=== PATIENT | male | born 1935 | race Caucasian/White ===

== ENCOUNTER → 2018-10-26 | Outpatient (REF) | payer MEDICARE, OTHER ==
[2018-10-26 11:20] LABS: HEMATOCRIT 38.4 % (42.0-52.0); MEAN CORPUSCULAR HEMOGLOBIN 28.4 pg (27.0-33.0); MEAN CORPUSCULAR HGB CONC 31.3 g/dl (32.0-36.5); MEAN CORPUSCULAR VOLUME 90.8 fl (80.0-96.0); PLATELET COUNT, AUTOMATED 227 10^3/uL (150-450); RED BLOOD COUNT 4.23 10^6/uL (4.30-6.10); WHITE BLOOD COUNT 5.7 10^3/uL (4.0-10.0)
[2018-10-26 11:22] LABS: APPEARANCE, URINE CLEAR (CLEAR); BACTERIA, URINE AUTO NEGATIVE (NEGATIVE); BILIRUBIN, URINE AUTO NEGATIVE (NEGATIVE); BLOOD, URINE BLOOD NEGATIVE (NEGATIVE); COLOR, URINE YELLOW (YELLOW); GLUCOSE, URINE (UA) AUTO NEGATIVE (NEGATIVE); KETONE, URINE AUTO NEGATIVE (NEGATIVE); LEUKOCYTE ESTERASE, URINE AUTO NEGATIVE (NEGATIVE); NITRITE, URINE AUTO NEGATIVE (NEGATIVE); PROTEIN, URINE AUTO NEGATIVE (NEGATIVE); RBC, URINE AUTO 4 /HPF (0-3); SPECIFIC GRAVITY URINE AUTO 1.011 (1.002-1.035); SQUAMOUS EPITHELIAL CELL UR AU 0 /HPF (0-6); UROBILINOGEN, URINE AUTO 0.2 mg/dL (0.0-2.0); WBC, URINE AUTO 2 /HPF (0-3)
[2018-10-26 11:59] LABS: ALBUMIN 3.6 GM/DL (3.2-5.2); ALT/SGPT 23 U/L (12-78); BILIRUBIN,TOTAL 0.6 MG/DL (0.2-1.0); BLOOD UREA NITROGEN 11 MG/DL (7-18); CALCIUM LEVEL 9.4 MG/DL (8.8-10.2); CARBON DIOXIDE LEVEL 31 MEQ/L (21-32); CHLORIDE LEVEL 108 MEQ/L (98-107); CHOLESTEROL LEVEL 129 MG/DL (<200); CHOLESTEROL RISK RATIO 2.263 (<5); CREATININE FOR GFR 0.92 MG/DL (0.70-1.30); GLOMERULAR FILTRATION RATE > 60.0 (>35); GLUCOSE, FASTING 84 MG/DL (70-100); HDL CHOLESTEROL 57 MG/DL (>40); IRON (FE) 87 UG/DL (65-175); LDL CHOLESTEROL 60 MG/DL (<100); NON-HDL-C 72 MG/DL; PERCENT SATURATION 33.3 % (19.7-50.0); POTASSIUM SERUM 4.4 MEQ/L (3.5-5.1); SODIUM LEVEL 143 MEQ/L (136-145); TOTAL IRON BINDING CAPACITY 261 UG/DL (250-450); TOTAL PROTEIN 6.8 GM/DL (6.4-8.2); TRIGLYCERIDES LEVEL 59 MG/DL (<150)
[2018-10-26 12:00] LABS: CREATININE, URINE 85.2 MG/DL; MALB URINE SIEMENS 9.8 MG/L; MAU/CREAT RATIO 11.5 MCG/MG (0.0-30.0)
== END ==
LOC: M SFHCPLAZ 08:22
PROVIDERS: ATTEND Nurse Practitioner Family
DX: E11.9 Type 2 diabetes mellitus without complications (principal); E78.5 Hyperlipidemia, unspecified; R60.9 Edema, unspecified; I10 Essential (primary) hypertension; D64.9 Anemia, unspecified

== ENCOUNTER → 2019-10-05 | Outpatient (REF) | payer MEDICARE, OTHER ==
[2019-11-03 04:28] LABS: BASO # 0.1 10^3/uL (0.0-0.2); BASO % 1.5 % (0.0-1.0); EOS # 0.5 10^3/uL (0.0-0.5); EOS % 7.4 % (0.0-3.0); HEMOGLOBIN 12.6 g/dl (13.5-17.5); LYMPH # 1.5 10^3/uL (1.5-5.0); LYMPH % 20.6 % (24.0-44.0); MEAN CORPUSCULAR HEMOGLOBIN 29.1 pg (27.0-33.0); MEAN CORPUSCULAR HGB CONC 31.5 g/dl (32.0-36.5); MEAN CORPUSCULAR VOLUME 92.4 fl (80.0-96.0); MONO # 0.7 10^3/uL (0.0-0.8); MONO % 9.8 % (0.0-5.0); NEUTROPHILS # 4.4 10^3/uL (1.5-8.5); NEUTROPHILS % 60.4 % (36.0-66.0); PLATELET COUNT, AUTOMATED 216 10^3/uL (150-450); RED BLOOD COUNT 4.33 10^6/uL (4.30-6.10); WHITE BLOOD COUNT 7.3 10^3/uL (4.0-10.0)
[2019-11-14 22:34] LABS: ALBUMIN 3.6 GM/DL (3.2-5.2); ALT/SGPT 17 U/L (12-78); BILIRUBIN,TOTAL 0.6 MG/DL (0.2-1.0); BLOOD UREA NITROGEN 12 MG/DL (7-18); CALCIUM LEVEL 9.2 MG/DL (8.8-10.2); CARBON DIOXIDE LEVEL 31 MEQ/L (21-32); CHLORIDE LEVEL 105 MEQ/L (98-107); CREATININE FOR GFR 0.93 MG/DL (0.70-1.30); FREE T4 0.98 NG/DL (0.76-1.46); GLOMERULAR FILTRATION RATE > 60.0 (>35); GLUCOSE, FASTING 150 MG/DL (70-100); POTASSIUM SERUM 4.4 MEQ/L (3.5-5.1); SODIUM LEVEL 140 MEQ/L (136-145)
== END ==
LOC: M SFHCPLAZ 14:56
DX: R20.3 Hyperesthesia (principal); R53.83 Other fatigue; K58.2 Mixed irritable bowel syndrome; R19.8 Other specified symptoms and signs involving the digestive system and abdomen

== ENCOUNTER → 2019-10-12 | Outpatient (REF) | payer MEDICARE, OTHER ==
[2019-12-09 23:03] LABS: CA19-9 TUMOR MARKER,CARBOHYDRA 6.9 U/ML (<35.0)
== END ==
LOC: M SFHCPLAZ 09:03
PROVIDERS: ATTEND Internal Medicine
DX: R10.9 Unspecified abdominal pain (principal); R19.8 Other specified symptoms and signs involving the digestive system and abdomen; R53.83 Other fatigue

== ENCOUNTER → 2019-11-01 | Outpatient (CLI) | payer MEDICARE, OTHER ==
[2019-11-01 16:25] LABS: PERCENT SATURATION 34.1 % (19.7-50.0)
== END ==
LOC: M PLALAB 11:50
DX: D64.9 Anemia, unspecified (principal)

== ENCOUNTER → 2020-02-12 | Outpatient (CLI) | payer MEDICARE, OTHER ==
[2020-02-13 12:29] LABS: ALBUMIN % 56.3 % (55.8-66.1); ALPHA-1-GLOBULIN % 4.3 % (2.9-4.9); ALPHA-2-GLOBULINS % 13.6 % (7.1-11.8); BETA-2-GLOBULINS % 4.7 % (3.2-6.5)
[2020-02-13 12:30] LABS: ALBUMIN 3.94 GM/DL (3.29-5.55); ALPHA-2-GLOBULINS 0.95 GM/DL (0.42-0.99); BETA-1-GLOBULINS 0.42 GM/DL (0.28-0.60); BETA-2-GLOBULINS 0.33 GM/DL (0.19-0.55); GAMMA GLOBULIN % 15.1 % (11.1-18.8); GAMMA GLOBULINS 1.06 GM/DL (0.65-1.58)
== END ==
LOC: M PLALAB 14:03
DX: R89.9 Unspecified abnormal finding in specimens from other organs, systems and tissues (principal)

== ENCOUNTER → 2020-03-31 | Outpatient (REF) | payer MEDICARE, OTHER ==
[2020-03-31 14:34] LABS: TOTAL PROTEIN 7.2 GM/DL (6.4-8.2)
[2020-04-02 12:29] LABS: ALBUMIN % 58.3 % (55.8-66.1); ALPHA-1-GLOBULIN % 3.7 % (2.9-4.9); ALPHA-1-GLOBULINS 0.27 GM/DL (0.17-0.41); ALPHA-2-GLOBULINS 0.94 GM/DL (0.42-0.99); BETA-1-GLOBULINS 0.41 GM/DL (0.28-0.60); BETA-1-GLOBULINS % 5.7 % (4.7-7.2); BETA-2-GLOBULINS 0.32 GM/DL (0.19-0.55); BETA-2-GLOBULINS % 4.4 % (3.2-6.5); GAMMA GLOBULIN % 14.9 % (11.1-18.8); GAMMA GLOBULINS 1.07 GM/DL (0.65-1.58)
[2020-04-02 12:53] LABS: IMMUNOTYPING SERUM IGM ABNORMAL (NORMAL); IMMUNOTYPING SERUM KAPPA ABNORMAL (NORMAL)
== END ==
LOC: M SFHCPLAZ 10:48
DX: R77.8 Other specified abnormalities of plasma proteins (principal)

== ENCOUNTER → 2020-05-08 | Outpatient (CLI) | payer MEDICARE, OTHER ==
--- NOTE | 2020-05-08 15:31 | REP ---
INDICATION: EDEMA COMPARISON: 06/10/2014 TECHNIQUE: PA and lateral. FINDINGS: The mediastinum and cardiac silhouette are normal. The lung appiah are clear and without acute consolidation, effusion, or pneumothorax. The skeletal structures are intact and normal. IMPRESSION: No acute cardiopulmonary process. <Electronically signed by Romeo Blair > 05/08/20 [id number]
[2020-05-08 16:37] LABS: BASO # 0.1 10^3/uL (0.0-0.2); BASO % 1.3 % (0.0-1.0); EOS # 0.2 10^3/uL (0.0-0.5); HEMATOCRIT 37.3 % (42.0-52.0); HEMOGLOBIN 11.9 g/dl (13.5-17.5); LYMPH # 1.3 10^3/uL (1.5-5.0); LYMPH % 21.2 % (24.0-44.0); MEAN CORPUSCULAR HGB CONC 31.9 g/dl (32.0-36.5); MEAN CORPUSCULAR VOLUME 90.8 fl (80.0-96.0); MONO # 0.6 10^3/uL (0.0-0.8); MONO % 9.7 % (2.0-8.0); NEUTROPHILS # 4.1 10^3/uL (1.5-8.5); NEUTROPHILS % 64.5 % (36.0-66.0); PLATELET COUNT, AUTOMATED 214 10^3/uL (150-450); RED BLOOD COUNT 4.11 10^6/uL (4.30-6.10); WHITE BLOOD COUNT 6.3 10^3/uL (4.0-10.0)
[2020-05-08 16:39] LABS: ALT/SGPT 16 U/L (12-78); BILIRUBIN,TOTAL 0.4 MG/DL (0.2-1.0); BLOOD UREA NITROGEN 19 MG/DL (7-18); CALCIUM LEVEL 9.3 MG/DL (8.8-10.2); CARBON DIOXIDE LEVEL 29 MEQ/L (21-32); CHLORIDE LEVEL 108 MEQ/L (98-107); CREATININE FOR GFR 1.02 MG/DL (0.70-1.30); GLOMERULAR FILTRATION RATE > 60.0 (>35); GLUCOSE, FASTING 102 MG/DL (70-100); NT-PRO BNP 303 PG/ML (<450); SODIUM LEVEL 142 MEQ/L (136-145); TOTAL PROTEIN 7.1 GM/DL (6.4-8.2)
== END ==
LOC: M WUC 15:04
PROVIDERS: ATTEND Physician Assistant
DX: R60.9 Edema, unspecified (principal)

== ENCOUNTER → 2020-05-26 | Outpatient (REF) | payer MEDICARE, OTHER ==
[2020-05-26 15:59] LABS: CHOLESTEROL RISK RATIO 3.419 (<5)
[2020-05-26 16:11] LABS: MALB URINE SIEMENS 10.3 MG/L; MAU/CREAT RATIO 6.1 MCG/MG (0.0-30.0)
[2020-05-26 16:49] LABS: HEMOGLOBIN A1c 6.5 %
== END ==
LOC: M SFHCPLAZ 13:07
PROVIDERS: ATTEND Family Medicine
DX: E11.9 Type 2 diabetes mellitus without complications (principal)

== ENCOUNTER → 2020-07-29 | Outpatient (CLI) | payer MEDICARE, OTHER ==
[~2020-07-29] MED LIST: D3 +TAB PO; ECOT81TA5 PO; EZET10TA21 PO; FLOM0.4C39 PO; METF10004 PO; MM S100C PO; PEPT262S PO; QC A10TA PO; QC F0.52 PO; SIMV40TA20 PO; TOLT4CAP3 PO; VITA500T16 PO; [UNRECOGNIZED DRUG - CODE] SL
--- NOTE | 2020-07-29 15:16 | ECHO ---
ECHOCARDIOGRAM DATE OF PROCEDURE: 07/29/2020 Age: 84 Gender: Male Height: 69 inches Weight: 200 pounds Body Surface Area: 2.07 m2 PATIENT LOCATION: Outpatient. REFERRING PHYSICIAN: Adria Henriquez DO. INDICATION: Localized edema. MEASUREMENTS: 2D Measurements: RV 4.0 cm LV 4.9 cm Septum 1.2 cm Posterior wall 1.2 cm Aortic Root 3.6 cm LA 4.2 cm LVEF 65% Doppler Measurements: AV 1.87 m/s LVOT - 0.9 m/s MV-E 79, A 91, EA ratio 0.9 Early mitral deceleration time 275 msec E prime medial 6.1, A prime medial 13, E prime lateral 8.2 Average E/E prime ratio 11/PCWP 15.6 mmHg RVSP 37 mmHg IVC could not be well visualized COMMENTS: Normal sinus rhythm without intraventricular conduction disturbance. Technically challenging study in light of the patient's body habitus, but some diagnostically useful information was still obtained. M-mode and 2-dimensional echocardiography was performed with pulse, continuous wave, color flow, and tissue Doppler studies. Borderline concentric left ventricular hypertrophy with normal wall motion. Mildly dilated left atrium with grade 1 LV diastolic dysfunction but current estimated mean left atrial pressure within normal limits. Normal right heart chamber sizes and motion with Doppler evidence of mild pulmonary hypertension. His IVC could not be visualized so an estimated central venous pressure of 10 mmHg was used by convention. Normal aortic dimensions. Mild aortic valvular sclerosis without functional abnormality. Normal appearing mitral valvular apparatus and leaflet excursion with no posterior systolic buckling and only very mild mitral insufficiency. Normal appearing tricuspid valve with very mild insufficiency (physiologic). No apparent intracardiac mass or pericardial effusion. MTDD
== END ==
LOC: M CARPUL 07-11 12:55
PROVIDERS: ATTEND Student in an Organized Health Care Education/Training Program
DX: R60.0 Localized edema (principal)

== ENCOUNTER 2020-11-14 00:14 | Emergency (ER) | payer MEDICARE, OTHER ==
[~2020-11-14] VITALS: Ht 177.8 cm; Wt 77.9 kg
[2020-11-14] MEDS ORDERED: ISOVUE-370 76% 100ML VIAL As Ordered ONE (01:30)
--- NOTE | 2020-11-14 03:36 | REPVR ---
PROCEDURE INFORMATION: Exam: XR Chest Exam date and time: 11/14/2020 1:21 AM Age: 85 years old Clinical indication: Other: Near syncope TECHNIQUE: Imaging protocol: XR of the chest. Views: 2 views. COMPARISON: CR CHEST 2 VIEW 05/08/2020 3:19 PM FINDINGS: LUNGS and PLEURAL SPACE: The left diaphragm is slightly elevated compared to the right, similar to the prior exam. Lung volumes are within normal limits. Calcified granuloma suspected left lower lung field. No evidence of peribronchial thickening. There is no consolidation, pneumothorax, or pleural effusion. No evidence of pulmonary vascular redistribution or overt edema. MEDIASTINUM: There is no mediastinal shift or widening. CARDIAC SILHOUETTE: Cardiothoracic ratio is within normal limits. BONY THORAX: Degenerative changes of the spine and bony thorax noted. IMPRESSION: No acute infiltrate. Other incidental findings discussed above. Electronically signed by: Srinivasa Patel On 11/14/2020 03:36:06 AM
[2020-11-14 03:37] LABS: BASO # 0.1 10^3/uL (0.0-0.2); BASO % 1.4 % (0.0-1.0); EOS # 0.2 10^3/uL (0.0-0.5); EOS % 3.1 % (0.0-3.0); HEMATOCRIT 38.4 % (42.0-52.0); HEMOGLOBIN 12.1 g/dl (13.5-17.5); LYMPH # 1.3 10^3/uL (1.5-5.0); LYMPH % 24.5 % (24.0-44.0); MEAN CORPUSCULAR HEMOGLOBIN 28.9 pg (27.0-33.0); MEAN CORPUSCULAR HGB CONC 31.5 g/dl (32.0-36.5); MEAN CORPUSCULAR VOLUME 91.6 fl (80.0-96.0); MONO # 0.4 10^3/uL (0.0-0.8); MONO % 8.3 % (2.0-8.0); NEUTROPHILS # 3.2 10^3/uL (1.5-8.5); NEUTROPHILS % 62.5 % (36.0-66.0); PLATELET COUNT, AUTOMATED 230 10^3/uL (150-450); RED BLOOD COUNT 4.19 10^6/uL (4.30-6.10); WHITE BLOOD COUNT 5.2 10^3/uL (4.0-10.0)
[2020-11-14 04:08] LABS: ALBUMIN 3.6 GM/DL (3.2-5.2); ALT/SGPT 16 U/L (12-78); BILIRUBIN,DIRECT 0.1 MG/DL (0.0-0.2); BILIRUBIN,TOTAL 0.4 MG/DL (0.2-1.0); BLOOD UREA NITROGEN 16 MG/DL (7-18); CALCIUM LEVEL 9.3 MG/DL (8.8-10.2); CARBON DIOXIDE LEVEL 30 MEQ/L (21-32); CHLORIDE LEVEL 107 MEQ/L (98-107); CK-MB VALUE MASS < 1.0 NG/ML (<3.6); CPK CREATINE PHOSPHOKINASE 48 U/L (39-308); CREATININE FOR GFR 0.83 MG/DL (0.70-1.30); FREE T4 1.04 NG/DL (0.76-1.46); GLOMERULAR FILTRATION RATE > 60.0 (>35); GLUCOSE, FASTING 111 MG/DL (70-100); LIPASE 65 U/L (73-393); MB/CK RELATIVE INDEX 2.08 (< OR =4); POTASSIUM SERUM 3.8 MEQ/L (3.5-5.1); SODIUM LEVEL 141 MEQ/L (136-145); TROPONIN I < 0.02 NG/ML (< 0.10)
[2020-11-14 05:00] VITALS: BP 152/72
--- NOTE | 2020-11-14 05:08 | REPVR ---
PROCEDURE INFORMATION: Exam: CT Abdomen And Pelvis With Contrast Exam date and time: 11/14/2020 1:03 AM Age: 85 years old Clinical indication: Abdominal pain; Localized; Left lower quadrant (llq); Additional info: Llq pain constipation TECHNIQUE: Imaging protocol: Computed tomography of the abdomen and pelvis with contrast. Radiation optimization: All CT scans at this facility use at least one of these dose optimization techniques: automated exposure control; mA and/or kV adjustment per patient size (includes targeted exams where dose is matched to clinical indication); or iterative reconstruction. Contrast material: ISO; Contrast volume: 100 ml; Contrast route: INTRAVENOUS (IV); COMPARISON: None Study limitations: The uppermost aspect of the peritoneal cavity/diaphragm are not included. FINDINGS: LUNG BASES: Mild atelectasis and/or pulmonary parenchymal scarring. VASCULAR: Coronary arterial calcification is noted. No abdominoaortic aneurysm, dissection, or retroperitoneal hematoma. There is aortoiliac, and femoral atherosclerosis. PERITONEAL : The uppermost aspect of the peritoneal cavity is not included. No free intraperitoneal air or fluid is seen otherwise. GI: No hiatal hernia. The stomach is not sufficiently distended to evaluate wall thickening by this exam. No perigastric or periduodenal inflammatory stranding is seen. Non-specific fluid-filled loops of small bowel are seen. No significant asymmetric small-bowel distention to suggest a complete small bowel obstruction. The appendix does not appear inflamed. There is fluid within some portions of the colon. This could be correlated with symptoms and causes of diarrhea. There is diverticulosis but no evidence of acute diverticulitis. HEPATOBILIARY, PANCREAS, SPLEEN: The uppermost right hepatic dome is not included. Visualized hepatic length is 17.4 cm. Attenuation of the liver is consistent with fatty infiltration. There are calcified gallstones. No biliary dilation is seen. There is a hyperdense 11 mm distal pancreatic body nodule anteriorly (image 25, series 201). This is not a simple cyst. The significance of this is uncertain. This may represent a solid pancreatic lesion, a complex cyst or possibly an aneurysm. Nonemergent further evaluation of the pancreas by pancreatic protocol MRI is advised. No pancreatic inflammation. Spleen not enlarged. ADRENALS, KIDNEYS, BLADDER, RETROPERITONEAL: Adrenals within normal limits. There is chronic appearing severe caliectasis with renal parenchymal cortical thinning at the upper pole of the right kidney, likely secondary to a chronic obstruction. There is cystic dilation of the upper pole collecting system to nearly 10 cm in diameter. Right lower pole renal calcifications are seen but no significant hydronephrosis of the lower pole. Consider nonemergent urology consultation. Nonspecific bilateral perinephric stranding is seen. 8 mm left posterior bladder wall diverticulum is noted. Slightly prominent prostate impressing along the base of the urinary bladder. Prostate calcifications are noted. MUSCULOSKELETAL: Degenerative changes of the spine and pelvis are noted. Right inguinal postoperative changes are noted with some surgical clips. There appears to be recurrent fat containing right inguinal hernia. There is a 2.9 cm fluid collection at the opening of the right inguinal canal, likely chronic/postsurgical. IMPRESSION: No focal mesenteric inflammation. Nonspecific gastrointestinal findings to be correlated clinically are discussed above. Indeterminate pancreatic lesion. Nonemergent recommendations discussed above. Cholelithiasis but no other CT evidence for acute cholecystitis. 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 Genitourinary findings discussed above in detail. Other incidental and nonemergent findings discussed above. Electronically signed by: Srinivasa Patel On 11/14/2020 05:08:29 AM
--- NOTE | 2020-11-14 06:43 | ED PDOC ---
Post-Departure Follow-Up dr cyndee nguyen faxed formal report of ct abd/p for fu Shamika Mckeon MD Nov 14, 2020 06:43
--- NOTE | 2020-11-15 05:13 | ECGEPIP ---
[facility] - ED Test Date: 2020-11-14 Pat Name: LASHON WEISS Department: Room: - Gender: Male [employer]ologist: [facility] : 1935 Requested By: BATSHEVA Mitchell Order Number: [id number] Reading MD: Lavell Riddle Measurements Intervals [place] Rate: 71 P: 3 UT: 156 QRS: 18 QRSD: 88 T: -13 QT: 384 QTc: 417 Interpretive Statements Normal sinus rhythm NSTTW ABNORMALITY(S) SIMILAR TO 06/10/14 Electronically Signed on 11-15-2020 5:13:15 EDT by Lavell Riddle
== END 2020-11-14 06:01 | disposition home or self-care (01) ==
LOC: M ED 00:14
DX: K59.00 Constipation, unspecified (principal); R93.3 Abnormal findings on diagnostic imaging of other parts of digestive tract; M51.9 Unspecified thoracic, thoracolumbar and lumbosacral intervertebral disc disorder; K80.20 Calculus of gallbladder without cholecystitis without obstruction; E11.9 Type 2 diabetes mellitus without complications; I10 Essential (primary) hypertension; E78.5 Hyperlipidemia, unspecified; N40.0 Benign prostatic hyperplasia without lower urinary tract symptoms; Z87.891 Personal history of nicotine dependence; Z79.82 Long term (current) use of aspirin; Z79.899 Other long term (current) drug therapy
CPT/HCPCS: 71046; 74177; 80048; 80076; 82550; 82553; 83690; 84439; 84443; 84484; 85025; 93005; 93041; 94760; 99284; Q9967

== ENCOUNTER → 2020-11-20 | Outpatient (CLI) | payer MEDICARE, OTHER ==
[2020-11-20 10:50] LABS: BASO # 0.1 10^3/uL (0.0-0.2); BASO % 1.2 % (0.0-1.0); EOS # 0.1 10^3/uL (0.0-0.5); EOS % 2.1 % (0.0-3.0); HEMATOCRIT 40.4 % (42.0-52.0); HEMOGLOBIN 12.9 g/dl (13.5-17.5); LYMPH # 0.9 10^3/uL (1.5-5.0); LYMPH % 17.4 % (24.0-44.0); MEAN CORPUSCULAR HEMOGLOBIN 28.9 pg (27.0-33.0); MEAN CORPUSCULAR HGB CONC 31.9 g/dl (32.0-36.5); MEAN CORPUSCULAR VOLUME 90.4 fl (80.0-96.0); MONO # 0.4 10^3/uL (0.0-0.8); MONO % 8.3 % (2.0-8.0); NEUTROPHILS # 3.6 10^3/uL (1.5-8.5); NEUTROPHILS % 70.6 % (36.0-66.0); PLATELET COUNT, AUTOMATED 235 10^3/uL (150-450); RED BLOOD COUNT 4.47 10^6/uL (4.30-6.10); WHITE BLOOD COUNT 5.2 10^3/uL (4.0-10.0)
[2020-11-20 11:16] LABS: TOTAL PROTEIN 7.2 GM/DL (6.4-8.2)
[2020-11-21 12:57] LABS: ALBUMIN 4.38 GM/DL (3.29-5.55); ALBUMIN % 60.8 % (55.8-66.1); ALPHA-1-GLOBULIN % 3.4 % (2.9-4.9); ALPHA-1-GLOBULINS 0.24 GM/DL (0.17-0.41); ALPHA-2-GLOBULINS 0.87 GM/DL (0.42-0.99); ALPHA-2-GLOBULINS % 12.1 % (7.1-11.8); BETA-1-GLOBULINS 0.38 GM/DL (0.28-0.60); BETA-1-GLOBULINS % 5.3 % (4.7-7.2); BETA-2-GLOBULINS 0.28 GM/DL (0.19-0.55); BETA-2-GLOBULINS % 3.9 % (3.2-6.5); GAMMA GLOBULIN % 14.5 % (11.1-18.8); GAMMA GLOBULINS 1.04 GM/DL (0.65-1.58)
[2020-11-22 06:08] LABS: FREE KAPPA LIGHT CHAINS SERUM 42.2 mg/L (3.3-19.4); FREE KAPPA LIGHT CHAINS URINE 44.82 mg/L (0.63-113.79); FREE LAMBDA LIGHT CHAINS SERUM 18.5 mg/L (5.7-26.3); FREE LAMBDA LIGHT CHAINS URINE 3.48 mg/L (0.47-11.77); KAPPA/LAMBDA RATIO SERUM 2.28 (0.26-1.65); KAPPA/LAMBDA RATIO URINE 12.88 (1.03-31.76)
== END ==
LOC: M LAB 09:56
PROVIDERS: ATTEND Student in an Organized Health Care Education/Training Program
DX: D47.2 Monoclonal gammopathy (principal)

== ENCOUNTER → 2020-12-10 | Outpatient (CLI) | payer MEDICARE, OTHER ==
[~2020-12-10] MED LIST changes: +PROHANCE 279.3MG/ML 15ML VIAL As Ordered ONE
--- NOTE | 2020-12-11 08:48 | REP ---
INDICATION: PANCREATIC LESION. COMPARISON: 05/16/2013. TECHNIQUE: Multiple sequences obtained in the axial coronal planes prior to and following the intravenous administration of 15 mL ProHance. FINDINGS: Liver is normal in size with no intrinsic lesion. Spleen is normal in size. The adrenal glands are normal. In the body of the pancreas along the anterior margin there is an enhancing nodule which measures 10 x 9 mm. This does appear to have been present in 2013. On the prior study it does not enhance to the extent that it does on the current study and the diameter has increased since that time by about 1 mm in each dimension. There is a cluster of a few nonenhancing subcentimeter cysts at the inferior margin of the pancreatic head. There is no pancreatic duct dilatation. A nonenhancing cystic structure is visualized in the upper pole the right kidney which may represent chronic caliceal dilatation. There is no adenopathy or free fluid in the abdomen. The abdominal aorta is normal in caliber. The gallbladder is mildly distended and contains gallstones, with no gallbladder wall edema. There is no biliary dilatation. IMPRESSION: In the body of the pancreas lung anterior margin there is enhancing nodule measuring 10 x 9 mm. On the prior study it does not enhance to the extent that it does on the current study and the diameter has increased since that time by about 1 mm in each dimension. This may represent an islet cell or samira endocrine tumor. There is a cluster of a few nonenhancing subcentimeter cyst at the inferior margin of the pancreatic head which do not appear suspicious. Recommend follow-up MRI of the pancreas in 1 year. <Electronically signed by Santiago Alfredo > 12/11/20 [id number]
== END ==
LOC: M RAD 16:56
PROVIDERS: ATTEND Student in an Organized Health Care Education/Training Program
DX: K86.2 Cyst of pancreas (principal)
CPT/HCPCS: 74183; A9576

== ENCOUNTER → 2021-01-12 | Outpatient (CLI) | payer MEDICARE, OTHER ==
[~2021-01-12] MED LIST changes: -PROHANCE 279.3MG/ML 15ML VIAL As Ordered ONE
--- NOTE | 2021-01-12 14:32 | REP ---
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 COMPARISON: The accompanying frontal view the chest has been compared to prior chest radiograph 11/15/2019 TECHNIQUE: Five views total FINDINGS: The left 7th rib is fractured posteriorly. Due to the degree of bony demineralization other fractures cannot be ruled out. The accompanying frontal view the chest is unchanged from the prior exam other than the aforementioned fracture. IMPRESSION: Left 7th rib fracture and possible other fractures as described above. <Electronically signed by Jose Dutton > 01/12/21 [id number]
[2021-01-12 17:11] LABS: CREATININE, URINE 66.6 MG/DL; MALB URINE SIEMENS < 5.0 MG/L; MAU/CREAT RATIO 7.5 MCG/MG (0.0-30.0)
[2021-01-12 17:21] LABS: HEMOGLOBIN A1c 6.1 %
[2021-01-12 17:35] LABS: BLOOD UREA NITROGEN 15 MG/DL (7-18); CALCIUM LEVEL 9.6 MG/DL (8.8-10.2); CARBON DIOXIDE LEVEL 30 MEQ/L (21-32); CHLORIDE LEVEL 105 MEQ/L (98-107); CREATININE FOR GFR 0.78 MG/DL (0.70-1.30); GLOMERULAR FILTRATION RATE > 60.0 (>35); GLUCOSE, FASTING 111 MG/DL (70-100); POTASSIUM SERUM 3.9 MEQ/L (3.5-5.1); SODIUM LEVEL 142 MEQ/L (136-145)
== END ==
LOC: M RAD 14:02
PROVIDERS: ATTEND Student in an Organized Health Care Education/Training Program
DX: S22.32XA Fracture of one rib, left side, initial encounter for closed fracture (principal); R07.81 Pleurodynia; E11.9 Type 2 diabetes mellitus without complications; Z12.5 Encounter for screening for malignant neoplasm of prostate
CPT/HCPCS: 36415; 71101; 80048; 82043; 83036; G0103

== ENCOUNTER → 2021-05-01 | Outpatient (CLI) | payer MEDICARE, OTHER | LOC: M PLALAB 12:33 | PROVIDERS: ATTEND Family Medicine | DX: R97.20 Elevated prostate specific antigen [PSA] (principal); Z12.5 Encounter for screening for malignant neoplasm of prostate | CPT/HCPCS: 36415; G0103 ==

== ENCOUNTER → 2021-05-14 | Outpatient (REF) | payer MEDICARE, OTHER ==
[2021-05-14 17:43] LABS: APPEARANCE, URINE CLEAR (CLEAR); BACTERIA, URINE AUTO NEGATIVE (NEGATIVE); BILIRUBIN, URINE AUTO NEGATIVE (NEGATIVE); BLOOD, URINE BLOOD 1+ (NEGATIVE); COLOR, URINE YELLOW (YELLOW); GLUCOSE, URINE (UA) AUTO NEGATIVE (NEGATIVE); KETONE, URINE AUTO NEGATIVE (NEGATIVE); LEUKOCYTE ESTERASE, URINE AUTO NEGATIVE (NEGATIVE); NITRITE, URINE AUTO NEGATIVE (NEGATIVE); PROTEIN, URINE AUTO NEGATIVE (NEGATIVE); RBC, URINE AUTO 1 /HPF (0-3); SPECIFIC GRAVITY URINE AUTO 1.013 (1.002-1.035); SQUAMOUS EPITHELIAL CELL UR AU 0 /HPF (0-6); UROBILINOGEN, URINE AUTO 0.2 mg/dL (0.0-2.0); WBC, URINE AUTO 0 /HPF (0-3)
== END ==
LOC: M SMT 16:53
PROVIDERS: ATTEND Urology
DX: N13.30 Unspecified hydronephrosis (principal); Z79.899 Other long term (current) drug therapy

== ENCOUNTER → 2021-06-01 | Outpatient (CLI) | payer MEDICARE, OTHER ==
[2021-06-01 13:16] LABS: BASO # 0.1 10^3/uL (0.0-0.2); BASO % 1.4 % (0.0-1.0); EOS # 0.2 10^3/uL (0.0-0.5); EOS % 3.6 % (0.0-3.0); HEMOGLOBIN 11.4 g/dl (13.5-17.5); LYMPH # 0.9 10^3/uL (1.5-5.0); LYMPH % 17.9 % (24.0-44.0); MEAN CORPUSCULAR HGB CONC 31.7 g/dl (32.0-36.5); MEAN CORPUSCULAR VOLUME 91.6 fl (80.0-96.0); MONO # 0.4 10^3/uL (0.0-0.8); MONO % 8.6 % (2.0-8.0); NEUTROPHILS # 3.4 10^3/uL (1.5-8.5); NEUTROPHILS % 68.1 % (36.0-66.0); PLATELET COUNT, AUTOMATED 191 10^3/uL (150-450); RED BLOOD COUNT 3.93 10^6/uL (4.30-6.10)
[2021-06-01 14:22] LABS: BLOOD UREA NITROGEN 17 MG/DL (7-18); CALCIUM LEVEL 8.9 MG/DL (8.8-10.2); CARBON DIOXIDE LEVEL 30 MEQ/L (21-32); CHLORIDE LEVEL 107 MEQ/L (98-107); CREATININE FOR GFR 0.89 MG/DL (0.70-1.30); GLOMERULAR FILTRATION RATE > 60.0 (>35); GLUCOSE, FASTING 147 MG/DL (70-100); POTASSIUM SERUM 3.9 MEQ/L (3.5-5.1); SODIUM LEVEL 141 MEQ/L (136-145); TOTAL PROTEIN 6.4 GM/DL (6.4-8.2)
== END ==
LOC: M PLALAB 11:53
PROVIDERS: ATTEND Student in an Organized Health Care Education/Training Program
DX: D47.2 Monoclonal gammopathy (principal); E11.9 Type 2 diabetes mellitus without complications

== ENCOUNTER → 2021-06-02 | Outpatient (CLI) | payer MEDICARE, OTHER ==
[~2021-06-02] MED LIST changes: +ISOVUE-370 76% 100ML VIAL As Ordered ONE
== END ==
LOC: M RAD 07:18
PROVIDERS: ATTEND Student in an Organized Health Care Education/Training Program
DX: L98.9 Disorder of the skin and subcutaneous tissue, unspecified (principal); K02.9 Dental caries, unspecified; K03.81 Cracked tooth
CPT/HCPCS: 70487; Q9967

== ENCOUNTER → 2021-07-02 | Outpatient (REF) | payer MEDICARE, OTHER ==
[~2021-07-02] MED LIST changes: +GNPTAB37 PO; -ISOVUE-370 76% 100ML VIAL As Ordered ONE; -QC A10TA PO
== END ==
LOC: M SFHCDERM 19:00
PROVIDERS: ATTEND Family Medicine
DX: C44.301 Unspecified malignant neoplasm of skin of nose (principal)

== ENCOUNTER → 2021-09-04 | Outpatient (REF) | payer MEDICARE, OTHER | LOC: M SFHCPLAZ 14:34 | PROVIDERS: ATTEND Family Medicine | DX: E11.9 Type 2 diabetes mellitus without complications (principal) ==

== ENCOUNTER → 2021-09-07 | Outpatient (CLI) | payer MEDICARE, OTHER ==
[2021-09-07 21:56] LABS: BLOOD UREA NITROGEN 14 MG/DL (7-18); CALCIUM LEVEL 9.5 MG/DL (8.8-10.2); CARBON DIOXIDE LEVEL 32 MEQ/L (21-32); CHLORIDE LEVEL 103 MEQ/L (98-107); CREATININE FOR GFR 0.91 MG/DL (0.70-1.30); GLOMERULAR FILTRATION RATE > 60.0 (>35); GLUCOSE, FASTING 153 MG/DL (70-100); POTASSIUM SERUM 3.7 MEQ/L (3.5-5.1); SODIUM LEVEL 139 MEQ/L (136-145)
[2021-09-08 01:14] LABS: HEMOGLOBIN A1c 6.1 %
== END ==
LOC: M PLAIMG 14:34 → M PLALAB 14:34
PROVIDERS: ATTEND Student in an Organized Health Care Education/Training Program
DX: E11.9 Type 2 diabetes mellitus without complications (principal)

== ENCOUNTER 2021-11-16 17:41 | Emergency (ER) | payer MEDICARE, OTHER ==
[~2021-11-16] VITALS: Ht 177.8 cm; Wt 77.3 kg
[2021-11-16] MEDS ORDERED: OXYC1TAB23 (17:53)
[2021-11-16] MEDS ORDERED: ATOR40TA75 (17:53)
[2021-11-16] MEDS ORDERED: ROLLMIS8 XX (19:24)
[2021-11-16 19:43] VITALS: BP 151/71
== END 2021-11-16 19:55 | disposition home or self-care (01) ==
LOC: M ED 17:41
DX: S70.11XA Contusion of right thigh, initial encounter (principal); W10.9XXA Fall (on) (from) unspecified stairs and steps, initial encounter; Y92.099 Unspecified place in other non-institutional residence as the place of occurrence of the external cause; E11.9 Type 2 diabetes mellitus without complications; I10 Essential (primary) hypertension; Z79.82 Long term (current) use of aspirin; Z79.84 Long term (current) use of oral hypoglycemic drugs; Z79.899 Other long term (current) drug therapy

== ENCOUNTER 2021-11-19 11:18 | Emergency (ER) | payer MEDICARE, OTHER ==
[~2021-11-19] VITALS: Ht 177.8 cm; Wt 77.3 kg
[~2021-11-19 11:18] MED LIST changes: +ATOR40TA75; +OXYC1TAB23; +ROLLMIS8 XX
[2021-11-19] MEDS ORDERED: TRAM50TA2 PO (16:19)
[2021-11-19] MEDS ORDERED: NAPR220C23 PO (16:19)
[2021-11-19 16:37] VITALS: BP 169/79
== END 2021-11-19 16:33 | disposition home or self-care (01) ==
LOC: M ED 11:18
DX: S76.211A Strain of adductor muscle, fascia and tendon of right thigh, initial encounter (principal); W19.XXXA Unspecified fall, initial encounter; Y92.099 Unspecified place in other non-institutional residence as the place of occurrence of the external cause; Z79.82 Long term (current) use of aspirin; Z79.84 Long term (current) use of oral hypoglycemic drugs; Z79.899 Other long term (current) drug therapy
CPT/HCPCS: 72192; 99283; G0463

== ENCOUNTER → 2021-12-01 | Outpatient (REF) | payer MEDICARE, OTHER ==
[~2021-12-01] MED LIST changes: +NAPR220C23 PO; +TRAM50TA2 PO
== END ==
LOC: M SFHCDERM 08:24
PROVIDERS: ATTEND Dermatology
DX: D04.5 Carcinoma in situ of skin of trunk (principal)

== ENCOUNTER → 2021-12-18 | Outpatient (REF) | payer MEDICARE, OTHER | LOC: M LAB REF 15:52 | PROVIDERS: ATTEND Surgery | DX: C44.529 Squamous cell carcinoma of skin of other part of trunk (principal) ==

== ENCOUNTER → 2021-12-25 | Outpatient (REF) | payer MEDICARE, OTHER ==
[2021-12-25 16:07] LABS: HEMOGLOBIN 10.5 g/dl (13.5-17.5); MEAN CORPUSCULAR HEMOGLOBIN 28.8 pg (27.0-33.0); MEAN CORPUSCULAR HGB CONC 30.9 g/dl (32.0-36.5); MEAN CORPUSCULAR VOLUME 93.2 fl (80.0-96.0); PLATELET COUNT, AUTOMATED 219 10^3/uL (150-450); RED BLOOD COUNT 3.65 10^6/uL (4.30-6.10); WHITE BLOOD COUNT 4.5 10^3/uL (4.0-10.0)
[2021-12-25 16:52] LABS: ALT/SGPT 13 U/L (12-78); BILIRUBIN,TOTAL 0.5 MG/DL (0.2-1.0); BLOOD UREA NITROGEN 13 MG/DL (7-18); CALCIUM LEVEL 8.5 MG/DL (8.8-10.2); CARBON DIOXIDE LEVEL 31 MEQ/L (21-32); CHLORIDE LEVEL 105 MEQ/L (98-107); CREATININE FOR GFR 0.79 MG/DL (0.70-1.30); GLOMERULAR FILTRATION RATE > 60.0 (>35); GLUCOSE, FASTING 143 MG/DL (70-100); SODIUM LEVEL 142 MEQ/L (136-145); TOTAL PROTEIN 6.2 GM/DL (6.4-8.2)
== END ==
LOC: M LAB REF 14:38
PROVIDERS: ATTEND Student in an Organized Health Care Education/Training Program
DX: D47.2 Monoclonal gammopathy (principal)

== ENCOUNTER → 2021-12-30 | Outpatient (CLI) | payer MEDICARE, OTHER | LOC: M RAD 14:57 | PROVIDERS: ATTEND Urology | DX: N40.1 Benign prostatic hyperplasia with lower urinary tract symptoms (principal); N13.9 Obstructive and reflux uropathy, unspecified; N28.1 Cyst of kidney, acquired ==

== ENCOUNTER 2023-01-17 11:35 | Emergency (ER) | payer MEDICARE, OTHER ==
[~2023-01-17] VITALS: Ht 175.3 cm; Wt 75.3 kg
[2023-01-17 12:59] VITALS: BP 181/93; TEMP 96.9; O2SAT 100
== END 2023-01-17 13:26 | disposition home or self-care (01) ==
LOC: M ED 11:35 → EDBD 11:35 → M ED 13:26
DX: S01.01XA Laceration without foreign body of scalp, initial encounter (principal); W01.119A Fall on same level from slipping, tripping and stumbling with subsequent striking against unspecified sharp object, initial encounter; I10 Essential (primary) hypertension; E11.9 Type 2 diabetes mellitus without complications; E78.5 Hyperlipidemia, unspecified; Y92.002 Bathroom of unspecified non-institutional (private) residence as the place of occurrence of the external cause; Y93.89 Activity, other specified; Y99.9 Unspecified external cause status; Z79.4 Long term (current) use of insulin; Z79.02 Long term (current) use of antithrombotics/antiplatelets; Z79.82 Long term (current) use of aspirin; Z79.899 Other long term (current) drug therapy